=== PATIENT | female | born 1960 | race Caucasian/White ===

== ENCOUNTER 2022-11-13 10:57 | Emergency (ER) | payer MEDICAID ==
[2022-11-13 11:43] LABS: ESTIMATED GFR 103 mL/min (>60)
== END 2022-11-13 13:55 | disposition home or self-care (01) ==
LOC: FB.ED 10:57
DX: R07.89 Other chest pain (principal); R79.0 Abnormal level of blood mineral; Z88.5 Allergy status to narcotic agent; Z20.822 Contact with and (suspected) exposure to COVID-19
CPT/HCPCS: 36415; 71046; 80053; 83880; 84484; 85025; 85379; 86140; 93005; 99285; U0002